=== PATIENT | female | born 1975 | race Two or more races ===

== ENCOUNTER 2025-03-31 11:35 | Emergency (ER) | payer MEDICAID, SELFPAY ==
[2025-03-31 12:38] VITALS: BP 123/80; PULSE 71; RESP 18; TEMP 36.8; O2SAT 98; BMI 33.5
--- NOTE | 2025-03-31 12:49 | XR_ITS ---
EXAMINATION: PA chest single view TECHNIQUE: Upright PA chest single view Date and time: March 31, 2025, 1254 hours INDICATION: Difficulty breathing beginning 3 days ago FINDINGS: Normal heart size Lungs are clear. Osseous structures are intact IMPRESSION: No active disease
--- NOTE | 2025-03-31 12:49 | EKG_ITS ---
[facility] Test Date: 2025-03-31 Pat Name: ROBBIN BRANDT Department: Room: - Gender: Female Ux Developer: : 1975 Requested By: Kanwal Tomlin Order Number: [id number] Reading MD: Kanwal Tomlin Measurements Intervals [place] Rate: 61 P: -1 AL: 191 QRS: 15 QRSD: 94 T: 37 QT: 407 QTc: 412 Interpretive Statements SINUS RHYTHM Compared to ECG 09/28/2023 16:46:25 No significant changes /store/S0/[id number].pdf
--- NOTE | 2025-03-31 12:49 | XR_ITS ---
Examination: CT brain head without contrast. 2-D sagittal coronal reconstructions Date and time of exam: March 31, 2025, 1326 hours INDICATIONS: Syncopal episodes today CTDI: vol (mGy): 50.8 DLP: (mGycm): 969 Technique: Multiple CT axial sections of the brain have been obtained, 5 mm slice thickness. Contrast has not been administered. 2-D sagittal, coronal reconstructions have been obtained Low dose protocols were performed. One or more of the following dose reduction techniques were used; automated exposure control, adjustment of the mA and/or KV according to patient size, use of iterative reconstruction technique. Findings: No significant ventricular enlargement. Intra-axial or extra-axial hemorrhage density is not seen. No mass effect or midline shift Basal cisterns are not remarkable. Fourth ventricle is midline. Cranial vault intact. Impression: Negative for acute hemorrhage, mass effect or midline shift Advise clinical correlation and follow-up accordingly
--- NOTE | 2025-03-31 12:51 | PD.EDRECHK ---
ED Recheck Abnl Lab Rx-RME/HPI General Chief Complaint: Recheck/Abnormal Lab/Rx Stated Complaint: NEEDS IRON INFUSION, WAS TOLD IT WAS UNDER 8 Time Seen by Provider: 03/31/25 11:48 Arrival date/time: 03/31/25 11:35 This is a 49-year-old female that comes into the emergency room with complaints of needing an infusion of iron. Patient states she has had multiple blood transfusions but she also has had multiple iron infusions. Patient was told that her level was under 8 but states they were not specific what value was actually under 8. Patient states she has had 3 syncopal episodes in the last 3 days. Patient just feels really weak. Related Data Previous Rx's ?Medication ?Instructions ?Recorded sulfamethoxazole 800 1 tab PO BID #20 tabs 08/31/22 mg-trimethoprim 160 mg tablet (Bactrim DS) prochlorperazine maleate 10 mg 10 mg PO BID PRN nausea and 09/28/23 tablet (Compazine) vomiting #14 tabs Allergies Allergy/AdvReac Type Severity Reaction Status Date / Time No Known Allergies Allergy Verified 03/31/25 11:37 Course Orders Category Date Time Status EKG (ED ONLY) *Do not use* NOW Care 03/31/25 12:[address] head/brain wo con Stat Exams 03/31/25 12:49 Ordered EKG (ED Only) Stat Exams 03/31/25 12:49 Ordered XR chest 1V Stat Exams 03/31/25 12:49 Ordered BNP [B-Type Natriuretic Peptide] Stat Lab 03/31/25 12:49 Ordered CBC Stat Lab 03/31/25 12:49 Ordered Comprehensive Metabolic Panel Stat Lab 03/31/25 12:49 Ordered Drug Screen,Urine Stat Lab 03/31/25 12:50 Ordered PT [Prothrombin Time with INR] Stat Lab 03/31/25 12:49 Ordered Troponin I Stat Lab 03/31/25 12:49 Ordered Type and Screen Stat Lab 03/31/25 12:49 Ordered Urinalysis, C/S if Indicated Stat Lab 03/31/25 12:50 Ordered Vital Signs Vital signs: Vital Signs Temperature 98.3 F 03/31/25 12:38 Pulse Rate 71 03/31/25 12:38 Respiratory Rate 18 03/31/25 12:38 Blood Pressure 123/80 03/31/25 12:38 Pulse Oximetry (%) 98 03/31/25 12:38 Oxygen Delivery Method Room Air 03/31/25 12:38 Discharge Plan Prescriptions/Referrals Prescriptions/Med Rec: No Action sulfamethoxazole-trimethoprim [Bactrim DS] 800-160 mg tablet 1 tab PO BID Qty: 20 0RF prochlorperazine maleate [Compazine] 10 mg tablet 10 mg PO BID PRN (Reason: nausea and vomiting) Qty: 14 0RF Patient/Caregiver Discharge Instructions Print Language: Tristanian
--- NOTE | 2025-03-31 12:53 | PD.EDRME ---
Rapid Medical Screening Exam RME Arrival date/time: 03/31/25 11:35 This is a 49-year-old female that comes into the emergency room with complaints of needing an infusion of iron. Patient states she has had multiple blood transfusions but she also has had multiple iron infusions. Patient was told that her level was under 8 but states they were not specific what value was actually under 8. Patient states she has had 3 syncopal episodes in the last 3 days. Patient just feels really weak. Patient has no focal deficits. I have greeted and performed a focused initial assessment of this patient. Initial appropriate labs ordered at this time. A comprehensive ED assessment and evaluation of the patient and analysis of all test and completion of medical decision making process will be conducted by additional ED provider. Chief Complaint: Recheck/Abnormal Lab/Rx Time Seen by Provider: 03/31/25 11:48 Vital signs: Vital Signs Temperature 98.3 F 03/31/25 12:38 Pulse Rate 71 03/31/25 12:38 Respiratory Rate 18 03/31/25 12:38 Blood Pressure 123/80 03/31/25 12:38 Pulse Oximetry (%) 98 03/31/25 12:38 Oxygen Delivery Method Room Air 03/31/25 12:38 Exam: Alert and oriented, breathing even and unlabored, skin warm and dry Clinical Impression: Syncope
--- NOTE | 2025-03-31 13:08 | PD.EDRECHK ---
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 Patient complaint includes easy fatigability, body aches, weakness, not feeling well. Was seen by PCP yesterday and was told that hemoglobin was below 8. Patient is denying any vomiting denies any blood in the stool or change in the color of stool. Patient is taking multiple unrecalled medication for rheumatoid arthritis. Patient is ambulatory. RME / HPI RME / HPI narrative: 03/31/25 11:35 This is a 49-year-old female that comes into the emergency room with complaints of needing an infusion of iron. Patient states she has had multiple blood transfusions but she also has had multiple iron infusions. Patient was told that her level was under 8 but states they were not specific what value was actually under 8. Patient states she has had 3 syncopal episodes in the last 3 days. Patient just feels really weak. Patient has no focal deficits. I have greeted and performed a focused initial assessment of this patient. Initial appropriate labs ordered at this time. A comprehensive ED assessment and evaluation of the patient and analysis of all test and completion of medical decision making process will be conducted by additional ED provider. Exam: Alert and oriented, breathing even and unlabored, skin warm and dry Impression: Syncope Related Data Previous Rx's ?Medication ?Instructions ?Recorded sulfamethoxazole 800 1 tab PO BID #20 tabs 08/31/22 mg-trimethoprim 160 mg tablet (Bactrim DS) prochlorperazine maleate 10 mg 10 mg PO BID PRN nausea and 09/28/23 tablet (Compazine) vomiting #14 tabs ferrous sulfate 324 mg (65 mg 324 mg PO BID #60 tabs 03/31/25 iron) tablet,delayed release Allergies Allergy/AdvReac Type Severity Reaction Status Date / Time No Known Allergies Allergy Verified 03/31/25 11:37 Review of Systems Review of Systems Narrative Review of Systems: Review of system reviewed and within normal limits except mentioned in HPI ED Exam Narrative Physical exam: VITAL SIGNS: Reviewed. GENERAL APPEARANCE: Alert and interactive, follows commands, no acute distress, HEAD AND FACE: Non-traumatic. ENT: PERRL, pale conjunctiva, eyelid no trauma, Mucous membrane moist. NECK: Supple, nontender, no nuchal rigidity. CHEST: No tenderness, no crepitus, no paradoxical movement, no retractions. LUNGS: Clear, well ventilated, symmetric, no rales, no wheezing, no ronchi, no stridor, good breath sounds bilaterally. HEART: Regular rate, regular rhythm, no murmur, no gallops. ABDOMEN: Soft, positive bowel sounds, nondistended, no guarding, nontender, no rebound, no masses, RECTAL: Deferred. GENITAL: Deferred. NEUROLOGICAL: Gross motor function intact sensory function intact, Appropriate for age. MUSCULOSKELETAL: low back nontender, full range of motion. EXTREMITIES: Nontender, full range of motion. SKIN: Color pink, dry, no rash, no lacerations, no abrasions, no contusions. LYMPHATICS: Deferred. Course Quality Measures none Orders Category Date Time Status EKG (ED ONLY) *Do not use* NOW Care 03/31/25 12:[address] head/brain wo con Stat Exams 03/31/25 12:49 Completed EKG (ED Only) Stat Exams 03/31/25 12:49 Draft XR chest 1V Stat Exams 03/31/25 12:49 Completed BNP [B-Type Natriuretic Peptide] Stat Lab 03/31/25 13:12 Completed CBC Stat Lab 03/31/25 13:12 Completed Comprehensive Metabolic Panel Stat Lab 03/31/25 13:12 Completed Drug Screen,Urine Stat Lab 03/31/25 13:56 Completed PT [Prothrombin Time with INR] Stat Lab 03/31/25 13:12 Completed Troponin I Stat Lab 03/31/25 13:12 Completed Type and Screen Stat Lab 03/31/25 13:12 Completed Urinalysis, C/S if Indicated Stat Lab 03/31/25 13:56 Completed Acetaminophen Tab [Tylenol ES Tab] Med 03/31/25 12:52 Discontinued 1,000 mg PO X1 ONE Ondansetron Odt [Zofran Odt] Med 03/31/25 12:52 Discontinued 4 mg PO X1 ONE Vital Signs Vital signs: Vital Signs Temperature 98.3 F 03/31/25 12:38 Pulse Rate 71 12/19/25 12:38 Respiratory Rate 18 03/31/25 12:38 Blood Pressure 123/80 03/31/25 12:38 Pulse Oximetry (%) 98 03/31/25 12:38 Oxygen Delivery Method Room Air 03/31/25 12:38 Recheck / Abnormal Lab / Rx MDM Narrative MDM Narrative:: 48-year-old female patient with significant history of chronic anemia, rheumatoid arthritis, currently under care of a aboriginal education worker coordinator, was advised to go to the emergency room for possible blood transfusion. Patient complaint includes easy fatigability, body aches, weakness, not feeling well. Was seen by PCP yesterday and was told that hemoglobin was below 8. Patient is denying any vomiting denies any blood in the stool or change in the color of stool. Patient is taking multiple unrecalled medication for rheumatoid arthritis. Patient is ambulatory. CT scan of the head came back unremarkable. Chest x-ray also came back normal. Patient hemoglobin today was noted to be 8.7 hematocrit of 29.9 the rest of labs unremarkable patient stable for discharge home. Transfusion is done today at this time patient ambulatory vital signs normal. EKG showed normal sinus rhythm, ventricular rate of [address] segment elevation depression noted. Patient data External records reviewed:: None Clinical information provided by:: none Social determinants that could affect healthcare access:: none Patient has the following chronic illnesses:: History of rheumatoid arthritis How is presenting disease/condition affected by chronic disease/condition?: exacerbated by Evaluation data The following diagnostics were reviewed and interpreted by me:: lab results, radiology exam(s) and EKG tracing(s) Lab and/or radiology exams considered but not ordered:: None Interpretation Summary: See above Medications / Prescriptions Medications or Prescriptions considered but not ordered:: None Medication administrations:: Medication Administration History Discontinued Medications Acetaminophen (Acetaminophen 500 Mg Tablet) 1,000 mg PO X1 ONE Stop: 03/31/25 12:53 Last Admin: 03/31/25 13:54 Dose: 1,000 mg Documented By: PRAVEENA Ondansetron HCl (Ondansetron Odt 4 Mg Tabrap) 4 mg PO X1 ONE; Protocol Stop: 03/31/25 12:53 Last Admin: 03/31/25 13:54 Dose: 4 mg Documented By: PRAVEENA Tylenol Zofran Consultations Consultation(s) initiated? (list below): No Diagnosis Recheck Differential Diagnosis: other (Anemia generalized body weakness, history of rheumatoid arthritis anemia chronic disease) Most likely diagnosis given after review of the tests above:: Anemia, generalized weakness Admission Indicated Admission indicated?: indicated Admission Request Was there a request for admission?: No Disposition Plan Disposition Plan: Discharge Discharge Attestation Discharge Attestation: The patient and all family members were given an opportunity to ask questions and understood the discharge instructions. Discharge instructions specifically effects, indications for sooner follow up or return to the emergency department, and the expected course of current diagnosis. Patient condition: Stable Discharge Plan Plan Patient Disposition: HOME (Self Care) Discharge Disposition comment: Stable Prescriptions/Referrals Prescriptions/Med Rec: New ferrous sulfate 324 mg (65 mg iron) tablet,delayed release (DR/EC) 324 mg PO BID Qty: 60 0RF No Action sulfamethoxazole-trimethoprim [Bactrim DS] 800-160 mg tablet 1 tab PO BID Qty: 20 0RF prochlorperazine maleate [Compazine] 10 mg tablet 10 mg PO BID PRN (Reason: nausea and vomiting) Qty: 14 0RF Referrals: No Primary/Family,Physician [Primary Care Provider] - In 1 week Problem List Clinical Impression: Weakness generalized, Anemia Patient/Caregiver Discharge Instructions Discharge Activity: activity as tolerated Education Materials: Anemia Additional Instructions: Thank you for the opportunity for serving you today. You are stable for discharged . You are advised to: Follow-up with your PCP in 1 to 2 days Return to ED for worsening of symptoms Increase oral fluids Take medication as prescribed Print Language: Thai Stand Alone Forms: Celeste Award Info., Patient Portal Info Letter JIMI/LARRY Supervising Physician JONATHAN Supervising Physician: MD Asim
[2025-03-31 13:28] LABS: Basophils # (Auto) 0.0 Thou/mm3 (0.0-0.2); Basophils % (Auto) 1 % (0-2.5); Eosinophils # (Auto) 0.1 Thou/mm3 (0.0-0.5); Eosinophils % (Auto) 2 % (0-10); Hematocrit 29.9 % (36.0-46.0); Hemoglobin 8.7 g/dL (12.0-16.0); Immature Granulocytes Auto 0.01 Thou/mm3 (0.00-0.00); Lymphocytes # (Auto) 1.7 Thou/mm3 (1.0-4.8); Lymphocytes % (Auto) 30 % (10-50); Mean Corpuscular HGB Conc 29.1 g/dl (31.0-37.0); Mean Corpuscular Hemoglobin 20.0 pg (25.0-35.0); Mean Corpuscular Volume 69 fL (80-100); Monocytes # (Auto) 0.5 Thou/mm3 (0.0-0.8); Monocytes % (Auto) 9 % (0-12); Neutrophils # (Auto) 3.4 Thou/mm3 (1.8-7.7); Neutrophils % (Auto) 59 % (37-80); Nucleated Red Blood Cell # 0.00 Thou/mm3 (0.00-0.00); Nucleated Red Blood Cell % 0 /100 WBC (0); Platelet Count 381 Thou/mm3 (140-440); RDW Standard Deviation 39.1 fL (36.4-46.3); Red Blood Count 4.36 Miln/mm3 (4.00-5.20); White Blood Count 5.8 Thou/mm3 (3.6-11.0)
[2025-03-31 13:44] LABS: B-Type Natriuretic Peptide < 20 pg/mL (0-100)
[2025-03-31 13:46] LABS: Alanine Aminotransferase 13 U/L (10-49); Albumin, Serum 4.5 gm/dL (3.5-5.0); Albumin/Globulin Ratio 1.4 (1.2-2.2); Alkaline Phosphatase 77 U/L (46-116); Anion Gap 8 (7-16); Aspartate Amino Transferase 23 U/L (0-34); BUN/Creatinine Ratio 15 Ratio (12-20); Bilirubin,Total 0.4 mg/dL (0.3-1.2); Blood Urea Nitrogen 12 mg/dL (9-23); Calcium 8.8 mg/dL (8.3-10.6); Calcium (Corrected) 8.8 mg/dL (8.5-10.1); Carbon Dioxide 24.7 mMol/L (20.0-31.0); Chloride 108 mMol/L (98-107); Creatinine (Component) 0.8 mg/dL (0.6-1.3); Estimated Creatinine Clearance 95.0 mL/min (>60); Globulin 3.3 gm/dL (2.3-3.5); Glucose 85 mg/dL (74-106); Osmolality,Calculated 279 (275-295); Potassium 3.8 mMol/L (3.4-5.1); Sodium 141 mMol/L (136-145); Total Protein 7.8 gm/dL (5.7-8.2); Troponin I < 0.002 ng/mL (0.0-0.045); eGFR > 60 See Note
[2025-03-31] MEDS: ACETAMINOPHEN 500 MG TABLET 1000 MG PO (13:54)
[2025-03-31] MEDS: ONDANSETRON ODT 4 MG TABRAP PO (13:54)
[2025-03-31 14:03] LABS: Collection Type, Urine Voided
[2025-03-31 14:19] LABS: Amphetamine/Methamp Scrn,U Negative (Negative); Barbiturate Screen,Urine Negative (Negative); Benzodiazepines Screen,Urine Negative (Negative); Benzoylecgonine Screen, Ur Negative (Negative); Fentanyl Screen,Urine Negative (Negative); Opiate Screen,Urine Negative (Negative); THC Screen,Urine Negative (Negative)
[2025-03-31 14:21] LABS: INR 1.0 (0.9-1.3); Prothrombin Time 10.4 Seconds (9.0-12.2)
[2025-03-31 14:25] LABS: Bilirubin,Urine Negative (Negative); Blood,Urine Negative (Negative); Clarity,Urine Clear (Clear/Hazy); Color,Urine Colorless (Lt Yel-Yel); Culture Indicated,Urine Not Indicated; Glucose, Urine Negative (Negative); Ketones,Urine Negative (Negative); Leukocyte Esterase,Urine Negative (Negative); Nitrite,Urine Negative (Negative); PH,Urine 6.5 (5.0-7.0); Protein,Urine Negative (Neg - Trace); RBC,Urine < 1 /hpf (0-3); Specific Gravity,Urine 1.007 (1.001-1.035); Squamous Epithelial Cell,Urine 1 /hpf (0-5); Urobilinogen,Urine Negative mg/dL (0.0-1.0); WBC,Urine 1 /hpf (0-5)
[2025-03-31 14:52] VITALS: BP 126/86; PULSE 68; RESP 18; TEMP 36.7; O2SAT 98
== END 2025-03-31 14:53 | disposition home or self-care (01) ==
PROVIDERS: Emergency Provider Nurse Practitioner Family
DX: D64.9 Anemia, unspecified (principal); R06.00 Dyspnea, unspecified; R55 Syncope and collapse
CPT/HCPCS: 36415; 70450; 71045; 80053; 80307; 81001; 83880; 84484; 85025; 85610; 86850; 86900; 86901; 93005; 99283; Q0162; A9270